=== PATIENT | male | born 1975 | race African-American/Black ===

== ENCOUNTER 2025-01-17 08:34 | Emergency (ER) | payer SELFPAY ==
[2025-01-17 08:40] VITALS: BP 158/100; PULSE 67; RESP 20; TEMP 36.4; O2SAT 100
--- NOTE | 2025-01-17 09:13 | ED.DENTAL ---
HPI - Dental/Oral General Chief complaint: Dental/Oral Stated complaint: tooth ache Time Seen by Provider: 01/17/25 09:03 History of Present Illness HPI Narrative: 49-year-old male presents emergency department for right lower dental pain past 2 days. Patient states the pain is in his right molar. He reports mild swelling to the region. Denies fever, difficulty breathing. He is tolerating secretions without difficulty. States he has had issues with this tooth in the past. He does not have a dentist. Related Data Allergies Allergy/AdvReac Type Severity Reaction Status Date / Time No Known Allergies Allergy Verified 01/17/25 08:48 Review of Systems Review of Systems: All systems reviewed & are unremarkable except as noted in HPI and below Exam Narrative: GENERAL: Well-appearing, well-nourished, and in no acute distress. HEAD: Normocephalic, atraumatic. EYES: PERRLA and EOMI. ENT: Nares clear, no rhinorrhea or epistaxis. Mucous membranes moist. Left TM with serous effusion, no erythema or bulge E. Right TM is arevalo nonbulging with normal canals. Canals normal. Posterior pharynx erythema or edema, no tonsillar hypertrophy or exudates. Right molar with gingival irritation and tenderness. No fluctuance or evidence of periapical abscess. No trismus. Floor mouth is soft without crepitus. No facial or submandibular edema. Patient is tolerating secretions and speaking in full sentences. NECK: Supple. No nuchal rigidity CHEST: Clear to auscultation. No respiratory distress. HEART: Regular rate and rhythm. No murmur heard. Normal peripheral pulses. EXTREMITIES: Normal range of motion. No edema. SKIN: Warm, dry, no rash. NEURO: No focal deficits. Alert and oriented x3 Course Vital Signs Vital signs: Vital Signs Temperature 97.5 F L 01/17/25 08:40 Pulse Rate 67 01/17/25 08:40 Respiratory Rate 20 01/17/25 08:40 Blood Pressure 158/100 H 01/17/25 08:40 Pulse Oximetry 100 01/17/25 08:40 Oxygen Delivery Room Air 01/17/25 08:40 Temperature 97.5 F L 01/17/25 08:40 Pulse Rate 60 01/17/25 09:34 Respiratory Rate 20 01/17/25 09:34 Blood Pressure 134/92 H 01/17/25 09:34 Pulse Oximetry 98 01/17/25 09:34 Oxygen Delivery Room Air 01/17/25 08:40 MDM - Dental/Oral MDM Narrative Medical decision making narrative: 49-year-old male presents emergency department for right lower molar pain for the past 2 days. Vitals with elevated blood pressure 150/100, otherwise unremarkable. Exam is notable for tenderness and gingival irritation to the right lower molar. No evidence of periapical abscess or deep space infection. No trismus. Patient is tolerating secretions and speaking in full sentences. Remainder of ENT exam is unremarkable. Will start the patient on Augmentin and provide them to follow ups. He was given Excelsior in the ED for pain, will send Tylenol, ibuprofen and viscous lidocaine for home. Discussed strict ED return precautions. He is agreeable with the plan verbalized understanding. Discharged in stable condition. Discharge Plan Discharge Clinical Impression: Toothache Patient Disposition: Home Condition: Stable Instructions: Antibiotic Form, Toothache (ED) Additional Instructions: Please take the antibiotics as directed. Use pain medications as directed. Follow-up closely with a dentist. Return to the emergency department if you develop difficulty breathing or swallowing, fever, other concerning symptoms. Patient Language: Yoruba Prescriptions: New amoxicillin-pot clavulanate 875-125 mg tablet 1 tablet PO Q12H Qty: 14 0RF acetaminophen 500 mg capsule 500 mg PO Q6H PRN (Reason: pain) Qty: 14 0RF ibuprofen 800 mg tablet 800 mg PO TID PRN (Reason: pain) Qty: 20 0RF lidocaine HCl [Lidocaine Viscous] 2 % solution 1 applic mucous membrane QID PRN (Reason: pain) Qty: 100 0RF Follow-up/Referrals: PHYSICIAN NOT ON STAFF,NONSTAFF [Non-Staff] - Stand Alone Forms: Work/School Release IP
[2025-01-17 09:34] VITALS: BP 134/92; PULSE 60; RESP 20; O2SAT 98
[2025-01-17] MEDS: HYDROcodone/acetaminophen (*CRX) 5-325 MG TABLET 1 TAB PO (09:39)
--- OUTSIDE RECORDS SUMMARY | 2025-01-17 09:39 | XMS_ITS | Clinical Summary ---
Author Organization [facility] Address [address] [place] [address] Care Team Providers Care Green Chain Operator Name Role Phone Debora Stephens RN Unavailable [phone] Source Comments [facility],non-owned Affiliates and Associated Physician Practices is amultiple site organization consisting of ambulatory clinics and hospital sitesin [place], [place], [place] and [place]. This disclosure is being madepursuant to the Care Everywhere program and may not contain all information available regarding this patient. Last updated 18.[facility] Allergies No known active allergies Medications * Be aware that medications may not be up to date on this document. Alwaysverify current medications with the patient. pantoprazole EC (PROTONIX) 40 MG tablet Take 1 Tab by mouth once daily. 30 Tab 0 08/25/2014 Active doxazosin (CARDURA) 2 MG tablet Take 1 Tab by mouth once daily. 30 Tab 1 08/25/2014 Active ondansetron, disintegrating, (ZOFRAN ODT) 4 MG tablet Take 1 Tab by mouth every 6 hours as needed for Nausea/Vomiti ng. Allow tablet to dissolve on the tongue 30 Tab 0 08/26/2014 Active Active Problems Problem Noted Date Diagnosed Date Left adrenal mass 08/19/2014 Acute gastritis 08/19/2014 Social History Tobacco Use Types Packs/Day Years Used Date Smoking Tobacco: Some Days Cigarettes Tobacco Cessation:Ready to Q uit: Yes; Counseling Given: Yes Comments:e-cigs Alcohol Use Standard Drinks/Week Comments No 0 (1 standard drink = 0.6 oz pur e alcohol) Sex and Gender Information Value Date Recorded Sex Assigned at Not on file Legal Sex Male 9:04 AM CDT Gender Identity Not on file Sexual Orientation Not on file Last Filed Vital Signs Vital Sign Reading Time Taken Comments Blood Pressure 106/62 08/26/2014 5:30 AM CIVIL DESIGN TECHNICIAN Pulse 70 08/26/2014 5:30 AM CIVIL DESIGN TECHNICIAN Temperature 36.7 C (98.1 F) 08/26/2014 5:30 AM CIVIL DESIGN TECHNICIAN Respiratory Rate 16 08/26/2014 5:30 AM CIVIL DESIGN TECHNICIAN Oxygen Saturation 99% 08/26/2014 5:30 AM CIVIL DESIGN TECHNICIAN Inhaled Oxygen Concentration - - Weight 59 kg (130 lb) 08/19/2014 3:42 AM CIVIL DESIGN TECHNICIAN Height 165.1 cm (5' 5) 08/19/2014 3:42 AM CIVIL DESIGN TECHNICIAN Body Mass Index 21.63 08/19/2014 3:42 AM CIVIL DESIGN TECHNICIAN Plan of Treatment Health Maintenance Due Date Last Done Comments COLOGUARD (AGES 45-75) - COL ON CA SCREENING 1977 CT COLONOGRAPHY - COLON CA SCREENING 1975 FIT - COLON CA SCREENING 1977 FLEX SIG - COLON CA SCREENING 1977 LIPID TESTING 1977 DTAP/TDAP/TD VACCINES (1 - Tdap) 1996 HEPATITIS B VACCINE (1 of 3 - 19+ 3-dose series) 1996 COVID-19 VACCINE ( - 2023-2 5 season) 2024 DEPRESSION SCREENING 07/12/2024 COLON MONITORING 08/21/2024 08/21/2014 COLONOSCOPY - COLON CA SCREENING 08/21/2024 08/21/19 15 Colorectal Cancer Screening 08/21/2024 INFLUENZA VACCINE (Season Ended) 2025 ZOSTER VACCINE (1 of 2) 2027 HEPATITIS C SCREENING Completed 08/21/2014 HIV SCREENING Completed 08/26/2014 HIB VACCINE Aged Out No longer eligi ble based on patient's age to complete this topic HPV VACCINE Aged Out No longer eligi ble based on patient's age to complete this topic MENINGOCOCCAL (Group B) VACC INE SHARED DECISION-MAKING Aged Out No longer eligibl e based on patient's age to complete this topic MENINGOCOCCAL GROUPS A/C/Y/W VACCINE Aged Out No longer eligible b ased on patient's age to complete this topic PNEUMOCOCCAL VACCINE Aged Out No long er eligible based on patient's age to complete this topic Procedures Procedure Name Priority Date/Time Associated Diagnosis Comments HIV-1 DNA PCR QUALITATIVE AM Draw 08/26/2014 5:24 AM CIVIL DESIGN TECHNICIAN HEPATITIS SCREEN ACUTE AM Draw 08/21/2014 7:56 AM CIVIL DESIGN TECHNICIAN ENDOSCOPY, COLON, DIAGNOSTIC Routine 08/21/2014 6:31 AM CIVIL DESIGN TECHNICIAN from Last 3 Months or Most Recently Relevant to Health Maintenance Results * HIV-1 DNA PCR QUALITATIVE (08/26/2014 5:24 AM CIVIL DESIGN TECHNICIAN) HIV-1 PCR Not Detected Not Detected 08/29/2014 9:56 AM CIVIL DESIGN TECHNICIAN [employer] ([facility]) Comment: INTERPRETIVE INFORMATION: HIV-1 PCR, Qualitative This test detects human immunodeficiency virus type 1 (HIV-1) DNA and RNA. The assay methodology is polymerase chain reaction (PCR) using the [employer] AmpliPrep/LESVIA TaqMan HIV-1 Qual Test. This test is optimized to yield equivalent amplification of Group M subtypes of HIV-1. A result of Not Detected does not rule out HIV-1 nucleic acid concentrations below the limit of detection of the assay or the presence of PCR inhibitors in the patient specimen. Improper specimen handling can cause false negatives. PCR may not detect infection in the first months of life. The diagnosis of HIV-1 infection should be made based on clinical presentation and results from additional diagnostic tests. Diagnosis should not be made based solely on a single HIV-1 test. False positives can be caused by PCR contamination. This assay should not be used for blood donor screening, associated re-entry protocols, or for screening Human Cell, Tissues and Cellular Tissue-Based Products (HCT/P). Test developed and characteristics determined by [employer]. See Compliance Statement D: [email or web address] Blood specimen (specimen) BLOOD SPECIMEN / Unknown 08/26/2014 5:24 AM CIVIL DESIGN TECHNICIAN 08/26/2014 5:28 AM CIVIL DESIGN TECHNICIAN us Janine Neves MD LAB - SEROLOGY ORDERABLE S Final Result [employer] ([facility]) [address] [place] [address] * HEPATITIS SCREEN ACUTE (08/21/2014 7:56 AM CIVIL DESIGN TECHNICIAN) HAV Antibody IgM Non Reactive Non Reactive 08/21/2014 3:36 PM CIVIL DESIGN TECHNICIAN [facility] HBsAg Non Reactive Non Reactive 08/21/2014 3:36 PM CIVIL DESIGN TECHNICIAN [facility] HBc Antibody IgM Non Reactive Non Reactive 08/21/2014 3:36 PM CIVIL DESIGN TECHNICIAN [facility] HCV Antibody Screen Non Reactive Non Reactive 08/21/2014 3:36 PM CIVIL DESIGN TECHNICIAN [facility] HCV S/C Ratio 0.06 0.00 - 0.79 08/21/2014 3:36 PM CIVIL DESIGN TECHNICIAN [facility] Comment: S/C ratio <0.80: Non Reactive Blood BLOOD SPECIMEN / Unknown 08/21/2014 7:56 AM CIVIL DESIGN TECHNICIAN 08/21/2014 8:06 AM CIVIL DESIGN TECHNICIAN Narrative [facility] - 08/21/2014 3:36 PM CIVIL DESIGN TECHNICIAN Nonreactive - Antibodies to HCV were not detected, result does not exclude early acute HCV infection. Kleber Miramontes MD LAB - CHEMISTRY ORDERABLES Counts include 234 beds at the [facility] Result [facility] [address] [id number] * ENDOSCOPY, COLON, DIAGNOSTIC (08/21/2014 6:31 AM CIVIL DESIGN TECHNICIAN) Pathologist [facility] Report Endoscopy POC _ Patient Name: Jerome Cantrell Procedure Date: 08/21/2014 6:31 AM Date of : 1975 Admit Type: Inpatient Age: 39 Gender: Male Attending MD: Kleber Miramontes, _ Procedure: Colonoscopy Indications: Iron deficiency anemia Providers: Kleber Miramontes (Doctor) Referring MD: Mayra Carrillo MD (Referring MD) Medicines: Monitored Anesthesia Care Complications: No immediate complications. Estimated blood loss: None. _ Procedure: After I obtained informed consent, the scope was passed under direct vision. Throughout the procedure, the patient's blood pressure, pulse, and oxygen saturations were monitored continuously. The scope was introduced through the anus and advanced to the cecum, identified by appendiceal orifice and ileocecal valve. The colonoscopy was performed without difficulty. The patient tolerated the procedure well. The quality of the bowel preparation was good. Findings: The perianal and digital rectal examinations were normal. The colon (entire examined portion) appeared normal. No evidence of polyps, AVM, or tumor. Internal hemorrhoids were found during retroflexion and were mild. _ Impression: - The entire examined colon is normal except for mild Internal hemorrhoids. Recommendation: - Return patient to hospital ding for ongoing care. - Repeat colonoscopy at the age of 52 for screening. - The cause of mild MARILYN is due to upper GI causes (see EGD report) Procedure Code(s): --- Professional --- 78351, Colonoscopy, flexible, proximal to splenic flexure; diagnostic, with or without collection of specimen(s) by brushing or washing, with or without colon decompression (separate procedure) --- Technical --- 11331, Colonoscopy, flexible, proximal to splenic flexure; diagnostic, with or without collection of specimen(s) by brushing or washing, with or without colon decompression (separate procedure) Diagnosis Code(s): --- Professional --- 280.9, Iron deficiency anemia, unspecified --- Technical --- 280.9, Iron deficiency anemia, unspecified CPT copyright 2013 [employer]. All rights reserved. The codes documented in this report are preliminary and upon health information coder review may be revised to meet current compliance requirements. Kleber Miramontes, 08/21/2014 9:36 AM This report has been signed electronically. Number of Addenda: 0 Note Initiated On: 08/21/2014 6:31 AM [facility] ENDOSCOPY 08/21/2014 6:31 AM CIVIL DESIGN TECHNICIAN Kleber Miramontes MD GI PROCEDURE ORDERABLES Edite d Result - Final [facility] [place] [address] from Last 3 Months or Most Recently Relevant to Health Maintenance Advance Directives * Full Code (Latest Code Status on File) Date Activated Date Inactivated Comments 08/19/2014 9:44 AM 08/26/2014 3:15 PM Care Teams Green Chain Operator Relationship Specialty Start Date End Date Debora Stephens, RN Psychiatric Aide 08/20/14
== END 2025-01-17 09:44 | disposition home or self-care (01) ==
LOC: ANHED 09:33
PROVIDERS: Emergency Provider Physician Assistant
DX: K08.89 Other specified disorders of teeth and supporting structures (principal)
CPT/HCPCS: 99283; A9270

== ENCOUNTER 2025-05-01 08:40 | Emergency (ER) | payer SELFPAY ==
--- NOTE | ~2025-05-01 | CT_ITS ---
CT ABDOMEN AND PELVIS WITHOUT CONTRAST Clinical History: Hematuria, urinary sxs Comparison: None Technique: Unenhanced axial images lung bases to symphysis pubis Coronal, sagittal reformats CT images acquired with automatic exposure control for dose reduction DLP: 196 mGy-cm Findings: Without intravenous contrast, sensitivity for detecting visceral parenchymal abnormalities decreased. Lung bases: Clear. Visualized heart and pericardium: Unremarkable. Liver: Unremarkable. Gallbladder: Unremarkable. Spleen: Unremarkable. Pancreas: Unremarkable. Adrenal glands: Unremarkable. Kidneys: Right kidney- No hydronephrosis. No renal stones. Left kidney- No hydronephrosis. No renal stones. Distal esophagus/stomach: Unremarkable. Small bowel loops: Normal caliber and wall thickness. Colon: Normal caliber and wall thickness. Normal RLQ appendix. Nodes: No enlarged nodes. Peritoneum: No ascites. No free intraperitoneal air. Surgical clips left upper quadrant near adrenal. Urinary bladder: Distended. Prostate: Unremarkable. Bones: No acute bony abnormality. Soft tissues: Unremarkable. Unopacified abdominal aorta: No aneurysmal dilatation. IMPRESSION: 1. Distended urinary bladder. 2. Otherwise no acute abnormality identified. Reviewed, dictated and finalized at location R.
[2025-05-01 08:45] VITALS: BP 147/95; PULSE 65; RESP 18; TEMP 36.7; O2SAT 100
[2025-05-01 09:12] LABS: Hematocrit 40.5 % (42.0-52.0); Hemoglobin 12.9 g/dL (14.0-18.0); Immature Granulocyte Percent A 1.4 % (0-0.5); Lymphocytes Absolute Auto 3.24 K/mm3 (0.9-3.2); Mean Corpuscular HGB Conc 31.9 g/dl (32-36); Mean Corpuscular Hemoglobin 25.2 pg (26-34); Mean Corpuscular Volume 79.1 fl (80-100); Nucleated Red Blood Cells Absolute Auto 0.000 K/mm3 (0.0-0.012); Nucleated Red Blood Cells Perc 0.0 % (0.0-0.2); Platelet Count Result 311 k/mm3 (150-375); Red Blood Count 5.12 M/mm3 (4.6-6.20); White Blood Count 8.5 K/mm3 (4.5-10.0)
--- OUTSIDE RECORDS SUMMARY | 2025-05-01 09:13 | XMS_ITS | Clinical Summary ---
Author Organization [facility] [employer] Address [address] [place] [address] Care Team Providers Care Apron Operator Name Role Phone Debora Stephens RN Unavailable [phone] Source Comments [facility],non-owned Affiliates and Associated Physician Practices is amultiple site organization consisting of ambulatory clinics and hospital sitesin [place], [place] and [place]. This disclosure is being madepursuant to the Care Everywhere program and may not contain all information available regarding this patient. Last updated 18.[facility] [employer] Allergies No known active allergies Medications * [...] Comments Blood Pressure 106/62 08/26/2014 5:30 AM NATUROPATHIC ONCOLOGY PROVIDER Pulse 70 08/26/2014 5:30 AM NATUROPATHIC ONCOLOGY PROVIDER Temperature 36.7 C (98.1 F) 08/26/2014 5:30 AM NATUROPATHIC ONCOLOGY PROVIDER Respiratory Rate 16 08/26/2014 5:30 AM NATUROPATHIC ONCOLOGY PROVIDER Oxygen Saturation 99% 08/26/2014 5:30 AM NATUROPATHIC ONCOLOGY PROVIDER Inhaled Oxygen Concentration - - Weight 59 kg (130 lb) 08/19/2014 3:42 AM NATUROPATHIC ONCOLOGY PROVIDER Height 165.1 cm (5' 5) 08/19/2014 3:42 AM NATUROPATHIC ONCOLOGY PROVIDER Body Mass Index 21.63 08/19/2014 3:42 AM NATUROPATHIC ONCOLOGY PROVIDER Plan of Treatment Health Maintenance Due Date Last Done Comments COLOGUARD (AGES 45-75) - COL ON CA SCREENING 1977 CT COLONOGRAPHY - COLON CA SCREENING 1977 FIT - COLON CA SCREENING 1977 FLEX SIG - COLON CA SCREENING 1977 LIPID TESTING 1977 DTAP/TDAP/TD VACCINES (1 - Tdap) 1996 HEPATITIS B VACCINE (1 of 3 - 19+ 3-dose series) 1996 DEPRESSION SCREENING 07/12/2024 COLON MONITORING 08/21/2024 08/21/2014 COLONOSCOPY - COLON CA SCREENING 08/21/2024 08/21/19 15 Colorectal Cancer Screening 08/21/2024 COVID-19 VACCINE (1 - 2023-2 5 season) 2025 INFLUENZA VACCINE (#1) 2025 ZOSTER VACCINE (1 of 2) 2027 [...] PCR QUALITATIVE AM Draw 08/26/2014 5:24 AM NATUROPATHIC ONCOLOGY PROVIDER HEPATITIS SCREEN ACUTE AM Draw 08/21/2014 7:56 AM NATUROPATHIC ONCOLOGY PROVIDER ENDOSCOPY, COLON, DIAGNOSTIC Routine 08/21/2014 6:31 AM NATUROPATHIC ONCOLOGY PROVIDER from Last 3 Months or Most Recently Relevant to Health Maintenance Results * HIV-1 DNA PCR QUALITATIVE (08/26/2014 5:24 AM NATUROPATHIC ONCOLOGY PROVIDER) HIV-1 PCR Not Detected Not Detected 08/29/2014 9:56 AM NATUROPATHIC ONCOLOGY PROVIDER [employer] ([facility]) Comment: INTERPRETIVE INFORMATION: HIV-1 PCR, Qualitative This test detects human immunodeficiency virus type 1 (HIV-1) DNA and RNA. The assay methodology is polymerase chain reaction (PCR) using the [employer] AmpliPrep/LESVIA TaqMan HIV-1 Qual Test. This test [...] (HCT/P). Test developed and characteristics determined by [employer]. See Compliance Statement D: [email or web address] Blood specimen (specimen) BLOOD SPECIMEN / Unknown 08/26/2014 5:24 AM NATUROPATHIC ONCOLOGY PROVIDER 08/26/2014 5:28 AM NATUROPATHIC ONCOLOGY PROVIDER us Janine Neves MD LAB - SEROLOGY ORDERABLE S Final Result [employer] ([facility]) [address] [place] [address] * HEPATITIS SCREEN ACUTE (08/21/2014 7:56 AM NATUROPATHIC ONCOLOGY PROVIDER) HAV Antibody IgM Non Reactive Non Reactive 08/21/2014 3:36 PM NATUROPATHIC ONCOLOGY PROVIDER [facility] HBsAg Non Reactive Non Reactive 08/21/2014 3:36 PM NATUROPATHIC ONCOLOGY PROVIDER [facility] HBc Antibody IgM Non Reactive Non Reactive 08/21/2014 3:36 PM NATUROPATHIC ONCOLOGY PROVIDER [facility] HCV Antibody Screen Non Reactive Non Reactive 08/21/2014 3:36 PM NATUROPATHIC ONCOLOGY PROVIDER [facility] HCV S/C Ratio 0.06 0.00 - 0.79 08/21/2014 3:36 PM NATUROPATHIC ONCOLOGY PROVIDER [facility] Comment: S/C ratio <0.80: Non Reactive Blood BLOOD SPECIMEN / Unknown 08/21/2014 7:56 AM NATUROPATHIC ONCOLOGY PROVIDER 08/21/2014 8:06 AM NATUROPATHIC ONCOLOGY PROVIDER Narrative [facility] - 08/21/2014 3:36 PM NATUROPATHIC ONCOLOGY PROVIDER Nonreactive - Antibodies to HCV were not detected, result does not exclude early acute HCV infection. Kleber Miramontes MD LAB - CHEMISTRY ORDERABLES [facility] Result [facility] [address] [id number] * ENDOSCOPY, COLON, DIAGNOSTIC (08/21/2014 6:31 AM NATUROPATHIC ONCOLOGY PROVIDER) Pathologist [facility] Report Endoscopy POC _ Patient Name: Jerome [...] EGD report) Procedure Code(s): --- Professional --- 15720, Colonoscopy, flexible, proximal to splenic flexure; diagnostic, with or without collection of specimen(s) by brushing or washing, with or without colon decompression (separate procedure) --- Technical --- 89517, Colonoscopy, flexible, proximal to splenic flexure; diagnostic, with or without collection of specimen(s) by brushing or washing, with or without colon decompression (separate procedure) Diagnosis Code(s): --- Professional --- 280.9, Iron deficiency anemia, unspecified --- Technical --- 280.9, Iron deficiency anemia, unspecified CPT copyright 2013 [employer]. All rights reserved. The codes documented in this report are preliminary and upon shoe worker review may be revised to meet current compliance requirements. Kleber Miramontes, 08/21/2014 9:36 AM This report has been signed electronically. Number of Addenda: 0 Note Initiated On: 08/21/2014 6:31 AM [facility] 08/21/2014 6:31 AM NATUROPATHIC ONCOLOGY PROVIDER Kleber Miramontes MD GI PROCEDURE ORDERABLES Edite d Result - Final [facility] [place] [address] from Last 3 Months or Most Recently Relevant to Health Maintenance Advance Directives * Full Code (Latest Code Status on File) Date Activated Date Inactivated Comments 08/19/2014 9:44 AM 08/26/2014 3:15 PM Care Teams Apron Operator Relationship Specialty Start Date End Date Debora Stephens, RN Art Conservator 08/20/14
[2025-05-01 09:22] LABS: Add Urine Microscopic? YES; Appearance Urine Clear (Clear); Need Manual Microscopic Reviewed; Non Pathogenic Casts 0-2
[2025-05-01 09:37] LABS: Alanine Aminotransferase 18 U/L (6-50); Albumin Level 3.9 g/dL (3.5-5.1); Alkaline Phosphatase 74 U/L (38-126); Anion Gap 8 mmol/L (4-12); Aspartate Amino Transferase 30 U/L (17-59); Bilirubin,Total 0.3 mg/dL (0.2-1.3); Blood Urea Nitrogen 18 mg/dL (9-20); Calcium 9.1 mg/dL (8.4-10.2); Carbon Dioxide 24 mmol/L (22-30); Chloride 106 mmol/L (98-107); Estimated CRCL calculation 65 ml/min; Estimated Glomerular Filt Rate > 60; Glucose 127 mg/dL (65-110); Potassium 3.4 mmol/L (3.4-5.0); Sodium 138 mmol/L (137-145); Total Protein 7.1 g/dL (6.3-8.2)
--- NOTE | 2025-05-01 10:04 | ED.GENADULT ---
HPI - General Adult General Chief complaint: Urogenital-Male Stated complaint: possible UTI Time Seen by Provider: 05/01/25 08:46 History of Present Illness HPI narrative: This is a 49-year-old male presenting with urinary symptoms. Her last several days he has had pain on urination, urgency and frequency. No history of UTIs. No history kidney stones. No fevers chills nausea vomiting diarrhea. Related Data Allergies Allergy/AdvReac Type Severity Reaction Status Date / Time No Known Allergies Allergy Verified 05/01/25 08:48 Exam Narrative: APPEARANCE: No apparent distress. Head: atraumatic. EYES: EOMI, NOSE: Atraumatic NECK: Trachea midline RESPIRATORY: No increased rate of breathing clear to auscultation CARDIOVASCULAR: RRR, no peripheral edema ABDOMINAL: Mild suprapubic fullness without guarding or rebound MUSCULOSKELETAl: No obvious deformities NEURO: Alert. Moving 4/4 extremities SKIN:: Warm, dry. Normal color PSYCHIATRIC: Normal affect Course Vital Signs Vital signs: Vital Signs Temperature 98.1 F 05/01/25 08:45 Pulse Rate 65 05/01/25 08:45 Respiratory Rate 18 05/01/25 08:45 Blood Pressure 147/95 H 05/01/25 08:45 Pulse Oximetry 100 05/01/25 08:45 Oxygen Delivery Room Air 05/01/25 08:45 Temperature 98.1 F 05/01/25 08:45 Pulse Rate 65 05/01/25 08:45 Respiratory Rate 18 05/01/25 08:45 Blood Pressure 147/95 H 05/01/25 08:45 Pulse Oximetry 100 05/01/25 08:45 Oxygen Delivery Room Air 05/01/25 08:45 Medical Decision Making [facility] Narrative Medical decision making narrative: -Course: 59-year-old male presenting with urinary symptoms. Urine was not indicative of infection. CT showed a distended bladder. Postvoid residual showed 650 cc of urine in the bladder. Jones was placed with leg bag and the bladder was emptied.. Patient will be discharged on Flomax and given Urology follow-up. Return precautions. STD testing was sent results will return in the next several days. -DDX includes but is not limited to: UTI, urinary retention, kidney stone, renal cancer Vital Signs Vital Signs: Vital Signs Temperature 98.1 F 05/01/25 08:45 Pulse Rate 65 05/01/25 08:45 Respiratory Rate 18 05/01/25 08:45 Blood Pressure 147/95 H 05/01/25 08:45 Pulse Oximetry 100 05/01/25 08:45 Oxygen Delivery Room Air 05/01/25 08:45 Temperature 98.1 F 05/01/25 08:45 Pulse Rate 65 05/01/25 08:45 Respiratory Rate 18 05/01/25 08:45 Blood Pressure 147/95 H 05/01/25 08:45 Pulse Oximetry 100 05/01/25 08:45 Oxygen Delivery Room Air 05/01/25 08:45 Lab Data 05/01/25 09:06 05/01/25 09:06 Labs: Lab Results 05/01/25 05/01/25 Range/Units 08:55 09:06 WBC 8.5 (4.5-10.0) K/mm3 RBC 5.12 (4.6-6.20) M/mm3 Hgb 12.9 L (14.0-18.0) g/dL Hct 40.5 L (42.0-52.0) % MCV 79.1 L (80-100) fl MCH 25.2 L (26-34) pg MCHC 31.9 L (32-36) g/dl RDW 14.5 (11.5-14.5) % Plt Count 311 (150-375) k/mm3 MPV 9.5 (7.4-10.4) fl Immature Gran % (Auto) 1.4 H (0-0.5) % Neut % (Auto) 49.1 (45.5-73.1) % Lymph % (Auto) 38.0 (18.3-44.2) % [place] % (Auto) 9.0 H (2.6-8.5) % Eos % (Auto) 1.6 (0-4.4) % Baso % (Auto) 0.9 (0.2-1.2) % Lymph # (Auto) 3.24 H (0.9-3.2) K/mm3 [place] # (Auto) 0.8 H (0.1-0.6) K/mm3 Eos # (Auto) 0.1 (0-0.3) K/mm3 Baso # (Auto) 0.1 (0.0-0.1) K/mm3 Abs Immat Gran (auto) 0.12 H (0.00-0.031) K/mm3 Absolute Neuts (auto) 4.2 (1.3-6.7) K/mm3 Absolute Nucleated RBC 0.000 (0.0-0.012) K/mm3 Nucleated RBC % 0.0 (0.0-0.2) % Sodium 138 (137-145) mmol/L Potassium 3.4 (3.4-5.0) mmol/L Chloride 106 (98-107) mmol/L Carbon Dioxide 24 (22-30) mmol/L Anion Gap 8 (4-12) mmol/L BUN 18 (9-20) mg/dL Creatinine 1.01 (0.7-1.3) mg/dL Estim Creat Clear Calc 65 ml/min Estimated GFR > 60 (59 - ) Glucose 127 H (65-110) mg/dL Calcium 9.1 (8.4-10.2) mg/dL Total Bilirubin 0.3 (0.2-1.3) mg/dL AST 30 (17-59) U/L ALT 18 (6-50) U/L Alkaline Phosphatase 74 (38-126) U/L Total Protein 7.1 (6.3-8.2) g/dL Albumin 3.9 (3.5-5.1) g/dL Urine Color Prosser H (Yellow) Urine Appearance Clear (Clear) Urine pH TNP Ur Specific [place] TNP Urine Protein TNP Urine Glucose (UA) TNP Urine Ketones TNP Ur Blood (Man) TNP Urine Nitrate TNP Urine Bilirubin TNP Urine Urobilinogen TNP Add Ur Microanalysis Reviewed Leukocyte Esterase Rfl TNP Urine RBC 0-2 (0-2) /hpf Urine WBC 0-5 (0-3) /hpf Ur Squamous Epith Cells None seen (Few) /hpf Urine Bacteria None seen /hpf Urine Casts 0-2 C. trachomatis (PCR) Pending N. gonorrhoeae (PCR) Pending T. vaginalis (PCR) Pending Discharge Plan Discharge Clinical Impression: Acute urinary retention Patient Disposition: Home Condition: Stable Instructions: Antibiotic Form, Urinary Retention in Men (ED) Additional Instructions: You were seen for urinary symptoms. You have urinary retention which means your bladder is not draining appropriately. Please keep the Jones in until you are evaluated by Urology in the next 3-5 days. Take Flomax once daily. If you develop any new symptoms such as fevers back pain or your Jones is not draining please return to the ED for re-evaluation. Patient Language: Niuean Prescriptions: New tamsulosin [Flomax] 0.4 mg capsule 0.4 mg PO DAILY Qty: 30 0RF No Action amoxicillin-pot clavulanate 875-125 mg tablet 1 tablet PO Q12H Qty: 14 0RF acetaminophen 500 mg capsule 500 mg PO Q6H PRN (Reason: pain) Qty: 14 0RF ibuprofen 800 mg tablet 800 mg PO TID PRN (Reason: pain) Qty: 20 0RF lidocaine HCl [Lidocaine Viscous] 2 % solution 1 applic mucous membrane QID PRN (Reason: pain) Qty: 100 0RF Follow-up/Referrals: PHYSICIAN,MERRY GO ROUND OPERATOR [Primary Care Provider, Internal Medicine] Darrian Hoskins MD [Physician, Urology] - 3 Days Referral Note: Urinary retention
[2025-05-01 10:18] LABS: Trichomonas Vag PCR NOT DETECTED (NOT DETECTE)
--- OUTSIDE RECORDS SUMMARY | 2025-05-01 10:35 | XMS_ITS | Clinical Summary ---
Author Organization [facility] Address [address] [place] [address] Care Team Providers Care Survey Superintendent Name Role Phone Debora Stephens RN Unavailable [phone] Source Comments [facility],non-owned Affiliates and Associated Physician Practices is amultiple site organization consisting of ambulatory clinics and hospital sitesin [place], [place], [place] and [place]. This disclosure is being madepursuant to the Care Everywhere program and may not contain all information available regarding this patient. Last updated 18.[facility] Allergies No known active allergies Medications * [...] Comments Blood Pressure 106/62 08/26/2014 5:30 AM RETAIL ADVERTISING ACCOUNT EXECUTIVE Pulse 70 08/26/2014 5:30 AM RETAIL ADVERTISING ACCOUNT EXECUTIVE Temperature 36.7 C (98.1 F) 08/26/2014 5:30 AM RETAIL ADVERTISING ACCOUNT EXECUTIVE Respiratory Rate 16 08/26/2014 5:30 AM RETAIL ADVERTISING ACCOUNT EXECUTIVE Oxygen Saturation 99% 08/26/2014 5:30 AM RETAIL ADVERTISING ACCOUNT EXECUTIVE Inhaled Oxygen Concentration - - Weight 59 kg (130 lb) 08/19/2014 3:42 AM RETAIL ADVERTISING ACCOUNT EXECUTIVE Height 165.1 cm (5' 5) 08/19/2014 3:42 AM RETAIL ADVERTISING ACCOUNT EXECUTIVE Body Mass Index 21.63 08/19/2014 3:42 AM RETAIL ADVERTISING ACCOUNT EXECUTIVE Plan of Treatment Health Maintenance Due Date [...] PCR QUALITATIVE AM Draw 08/26/2014 5:24 AM RETAIL ADVERTISING ACCOUNT EXECUTIVE HEPATITIS SCREEN ACUTE AM Draw 08/21/2014 7:56 AM RETAIL ADVERTISING ACCOUNT EXECUTIVE ENDOSCOPY, COLON, DIAGNOSTIC Routine 08/21/2014 6:31 AM RETAIL ADVERTISING ACCOUNT EXECUTIVE from Last 3 Months or Most Recently Relevant to Health Maintenance Results * HIV-1 DNA PCR QUALITATIVE (08/26/2014 5:24 AM RETAIL ADVERTISING ACCOUNT EXECUTIVE) HIV-1 PCR Not Detected Not Detected 08/29/2014 9:56 AM RETAIL ADVERTISING ACCOUNT EXECUTIVE [facility] ([facility]) Comment: INTERPRETIVE INFORMATION: HIV-1 PCR, Qualitative This [...] (HCT/P). Test developed and characteristics determined by [facility]. See Compliance Statement D: [email or web address] Blood specimen (specimen) BLOOD SPECIMEN / Unknown 08/26/2014 5:24 AM RETAIL ADVERTISING ACCOUNT EXECUTIVE 08/26/2014 5:28 AM RETAIL ADVERTISING ACCOUNT EXECUTIVE us Janine Neves MD LAB - SEROLOGY ORDERABLE S Final Result [facility] ([facility]) [address] [place] [address] * HEPATITIS SCREEN ACUTE (08/21/2014 7:56 AM RETAIL ADVERTISING ACCOUNT EXECUTIVE) HAV Antibody IgM Non Reactive Non Reactive 08/21/2014 3:36 PM RETAIL ADVERTISING ACCOUNT EXECUTIVE [facility] HBsAg Non Reactive Non Reactive 08/21/2014 3:36 PM RETAIL ADVERTISING ACCOUNT EXECUTIVE [facility] HBc Antibody IgM Non Reactive Non Reactive 08/21/2014 3:36 PM RETAIL ADVERTISING ACCOUNT EXECUTIVE [facility] HCV Antibody Screen Non Reactive Non Reactive 08/21/2014 3:36 PM RETAIL ADVERTISING ACCOUNT EXECUTIVE [facility] HCV S/C Ratio 0.06 0.00 - 0.79 08/21/2014 3:36 PM RETAIL ADVERTISING ACCOUNT EXECUTIVE [facility] Comment: S/C ratio <0.80: Non Reactive Blood BLOOD SPECIMEN / Unknown 08/21/2014 7:56 AM RETAIL ADVERTISING ACCOUNT EXECUTIVE 08/21/2014 8:06 AM RETAIL ADVERTISING ACCOUNT EXECUTIVE Narrative [facility] - 08/21/2014 3:36 PM RETAIL ADVERTISING ACCOUNT EXECUTIVE Nonreactive - Antibodies to HCV were not detected, result does not exclude early acute HCV infection. Kleber Miramontes MD LAB - CHEMISTRY ORDERABLES [facility] Result [facility] [address] [id number] * ENDOSCOPY, COLON, DIAGNOSTIC (08/21/2014 6:31 AM RETAIL ADVERTISING ACCOUNT EXECUTIVE) Pathologist [facility] Report Endoscopy POC [...] EGD report) Procedure Code(s): --- Professional --- 10393, Colonoscopy, flexible, proximal to splenic flexure; diagnostic, with or without collection of specimen(s) by brushing or washing, with or without colon decompression (separate procedure) --- Technical --- 26279, Colonoscopy, flexible, proximal to splenic flexure; diagnostic, with or without collection of specimen(s) by brushing or washing, with or without colon decompression (separate procedure) Diagnosis Code(s): --- Professional --- 280.9, Iron deficiency anemia, unspecified --- Technical --- 280.9, Iron deficiency anemia, unspecified CPT copyright 2013 [employer]. All rights reserved. The codes documented in this report are preliminary and upon stone polisher hand review may be revised to meet current compliance requirements. Kleber Miramontes, 08/21/2014 9:36 AM This report has been signed electronically. Number of Addenda: 0 Note Initiated On: 08/21/2014 6:31 AM [facility] ENDOSCOPY 08/21/2014 6:31 AM RETAIL ADVERTISING ACCOUNT EXECUTIVE Kleber Miramontes MD GI PROCEDURE ORDERABLES Edite d Result - Final [facility] [place] [place] [address] from Last 3 Months or Most Recently Relevant to Health Maintenance Advance Directives * Full Code (Latest Code Status on File) Date Activated Date Inactivated Comments 08/19/2014 9:44 AM 08/26/2014 3:15 PM Care Teams Survey Superintendent Relationship Specialty Start Date End Date Debora Stephens, RN Slot Router 08/20/14
[2025-05-01 10:40] VITALS: BP 134/69; PULSE 72; RESP 16; O2SAT 99
== END 2025-05-01 10:42 | disposition home or self-care (01) ==
PROVIDERS: Emergency Provider Emergency Medicine
DX: R33.9 Retention of urine, unspecified (principal)
CPT/HCPCS: 36415; 51702; 74176; 80053; 81001; 85025; 87491; 87591; 87661; 99284